=== PATIENT | female | born 1995 ===

== ENCOUNTER 2025-03-17 19:41 | Day surgery (SDC) | payer BC ==
[2025-03-17 20:05] LABS: BASOPHILS ABSOLUTE AUTO 0.08 K/uL (0.00-0.20); BASOPHILS PERCENT AUTO 0.3 % (0.0-1.0); EOSINOPHILS ABSOLUTE AUTO 0.18 K/uL (0.00-0.45); EOSINOPHILS PERCENT AUTO 0.7 % (0.0-6.0); IMMATURE GRAN ABSOLUTE AUTO 0.10 K/uL (0.00-0.05); IMMATURE GRAN PERCENT AUTO 0.4 % (0.0-0.4); LYMPHOCYTES ABSOLUTE AUTO 3.55 K/uL (1.00-4.80); LYMPHOCYTES PERCENT AUTO 14.0 % (24.0-44.0); MEAN PLATELET VOLUME 9.3 fL (9.4-12.3); MONOCYTES ABSOLUTE AUTO 1.03 K/uL (0.00-0.80); MONOCYTES PERCENT AUTO 4.1 % (0.0-8.0); NEUTROPHILS ABSOLUTE AUTO 20.42 K/uL (1.80-7.70); NEUTROPHILS PERCENT AUTO 80.5 % (41.0-71.0); NRBC ABSOLUTE 0.00 K/uL (0.00-0.02); NRBC PERCENT 0.0 /100WBC (0.0-0.2); PLATELET COUNT,PLT 343 K/uL (150-400); RED BLOOD CELL COUNT 4.60 M/uL (4.10-5.30); WHITE BLOOD CELL COUNT,WBC 25.36 K/uL (3.9-11.3)
[2025-03-17] MEDS ORDERED: Sodium Chloride 0.9% 10 ML Syringe FLUSH PRN (20:18)
[2025-03-17] MEDS ORDERED: Sodium Chloride 0.9% 2.5 ML Syringe FLUSH PRN (20:18)
[2025-03-17] MEDS: Ondansetron 4 MG/2 ML SDV IVPUSH ONE (20:35)
[2025-03-17 20:38] LABS: A/G RATIO 1.3 (0.9-1.6); ALANINE AMINOTRANSFERASE,ALT 22.0 IU/L (14-63); ASPARTATE AMNIOTRANSFERASE,AST 19.0 IU/L (15-37); BILIRUBIN TOTAL 1.1 mg/dL (0.2-1.0); BLOOD UREA NITROGEN,BUN 13.0 mg/dL (7.0-18.0); CARBON DIOXIDE,CO2 25.0 mmol/L (21.0-32.0); CHLORIDE,CL 103.0 mmol/L (98-107); CREATININE 0.9 mg/dL (0.6-1.0); EST CRCL DRUG DOSING (CG) 90.5 mL/min; GLUCOSE RANDOM 93.0 mg/dL (74-106); POTASSIUM,K 4.1 mmol/L (3.5-5.1); PROTEIN TOTAL,TP 7.9 g/dL (6.4-8.2); SODIUM,NA 141.0 mmol/L (136-145)
[2025-03-17 20:44] LABS: ESTIMATED GFR 89.0 mL/min (>60)
[2025-03-17] MEDS: cefTRIAXone 1 GM in Water For Injection, Sterile 10 ML IVPUSH ONE (21:16)
[2025-03-17 21:17] LABS: LACTIC ACID 0.9 mmol/L (0.4-2.0)
[2025-03-17] MEDS: metroNIDAZOLE/Normal Saline 500 MG in Premix Bag 1 BAG IV ONE (21:17)
[2025-03-17 21:19] LABS: APPEARANCE,URINE CLEAR; GLUCOSE,URINE NEGATIVE (NEGATIVE); OCCULT BLOOD,URINE LARGE (NEGATIVE)
[2025-03-17 21:28] LABS: EPITHELIAL CELLS,URINE FEW (NONE-FEW)
[2025-03-17 22:44] LABS: CANDIDA DNA PROBE NEGATIVE (NEGATIVE); GARDNERELLA DNA PROBE POSITIVE (NEGATIVE); TRICHOMONAS DNA PROBE NEGATIVE (NEGATIVE)
[2025-03-17] MEDS ORDERED: Iopamidol 755 MG/ML 500 ML Multipack Bottle IVPUSH STA (22:57)
[2025-03-17] MEDS: Iopamidol 755 MG/ML 500 ML Multipack Bottle IVPUSH STA (22:58)
[2025-03-17 23:27] LABS: C. TRACHOMATIS BY PCR NOT DETECTED; N. GONORRHOEAE BY PCR NOT DETECTED
[2025-03-18] MEDS: cefOXitin 2 GM in Water For Injection, Sterile 20 ML IVPUSH ONE (00:25)
[2025-03-18] MEDS: Lactated Ringers 1,000 ML IV SCH (01:53)
[2025-03-18] MEDS ORDERED: Ondansetron 4 MG/2 ML SDV ONE (07:24)
[2025-03-18] MEDS ORDERED: Scopalamine 1mg/3day Transdermal Patch ONE (07:24)
[2025-03-18] MEDS ORDERED: Naloxone 0.4 MG/ML SDV IVPUSH PRN (07:27)
[2025-03-18] MEDS ORDERED: Albuterol 0.083% 2.5 MG/3 ML Neb Soln NEB PRN (07:27)
[2025-03-18] MEDS ORDERED: fentaNYL 50 MCG/ML SDV IVPUSH PRN (07:27)
[2025-03-18] MEDS ORDERED: Ondansetron 4 MG/2 ML SDV IVPUSH PRN (07:27)
[2025-03-18] MEDS ORDERED: Lactated Ringers 1,000 ML IV SCH ×2 (08:15→11:45)
[2025-03-18] MEDS ORDERED: Magnesium Sulfate (4.06 MEQ/ML) 5 GM/10 ML SDV ONE (08:27)
[2025-03-18] MEDS ORDERED: Ropivacaine 0.5% 5 MG/ML 30 ML SDV ONE (09:03)
[2025-03-18] MEDS ORDERED: propofoL 1,000 MG/100 ML 100 ML ONE (09:03)
[2025-03-18] MEDS ORDERED: dexmedeTOMIDine HCl 200 MCG/2 ML SDV ONE (09:12)
[2025-03-18] MEDS ORDERED: Ketamine HCL/NACL, ISO-OSM 50 MG/5 ML Syringe ONE (10:09)
[2025-03-18] MEDS ORDERED: Dexamethasone 4 MG/ML 5 ML MDV ONE (10:11)
[2025-03-18] MEDS ORDERED: Ketorolac 30 MG/ML SDV ONE (10:49)
[2025-03-18] MEDS ORDERED: fentaNYL 100 MCG/2 ML SDV ONE (11:16)
[2025-03-18] MEDS ORDERED: Acetaminophen/oxyCODONE 325-5 MG Tab PO PRN (11:50)
[2025-03-18] MEDS: Scopalamine 1mg/3day Transdermal Patch TOP ONE (15:05)
[2025-03-18] MEDS: cefOXitin 1 GM in Water For Injection, Sterile 10 ML IVPUSH SCH (15:05)
== END 2025-03-18 17:18 | disposition home or self-care (01) ==
LOC: MW.ED 19:41 → MW.MS 03-18 00:04 → MW.SDS 03-18 00:04
PROVIDERS: ATTEND Surgery
DX: K35.30 Acute appendicitis with localized peritonitis, without perforation or gangrene (principal); F32.A Depression, unspecified; F41.9 Anxiety disorder, unspecified; Z79.899 Other long term (current) drug therapy
CPT/HCPCS: 36415; 44970; 74177; 76856; 80053; 81001; 82947; 83605; 83690; 83735; 84703; 85025; 87040; 87070; 87075; 87205; 87480; 87491; 87510; 87591; 87660; 96361; 96365; 96368; 96375; 99285; J0665; J0694; J0696; J1100; J1271; J1836; J1885; J2270; J2405; J2704; J2795; J3010; J3475; J7030; J7120; Q9967; 00840; 64488; 99283; A4216; A9270-GY; J1171; J3490